=== PATIENT | male | born 1995 | race Caucasian/White ===

== ENCOUNTER 2022-05-05 21:06 | Emergency (ER) | payer OTHER ==
[~2022-05-05] VITALS: Ht 180.3 cm; Wt 95.0 kg
[2022-05-05 22:06] VITALS: BP 129/89
[2022-05-05] MEDS ORDERED: ACETAMINOPHEN 325MG TABLET PO ONE (22:45)
[2022-05-05] MEDS ORDERED: BACITRACIN ZINC OINT UDPKT TOP ONE (22:45)
[2022-05-05] MEDS ORDERED: LIDOCAINE HCL/EPINEPHRINE 1%-EPI 1:100,000 20 ML VIAL INFIL ONE (22:45)
[2022-05-05] MEDS ORDERED: TETANUS, DIPHTHERIA, PERTUSSIS VAC/PF 0.5ML (>10YR OLD) IM ONE ×2 (22:45→23:30)
[2022-05-05] MEDS ORDERED: LIDOCAINE HCL/EPINEPHRINE 1%-EPI 1:100,000 20 ML VIAL INFIL NR (23:15)
[2022-05-05] MEDS ORDERED: BACITRACIN ZINC OINT UDPKT TOP NR (23:30)
[2022-05-05] MEDS ORDERED: CEPHALEXIN 250MG CAPSULE PO ONE (23:30)
[2022-05-05] MEDS ORDERED: ACETAMINOPHEN 325MG TABLET PO NR (23:30)
[2022-05-06] MEDS ORDERED: CEPH500T MT (00:01)
== END 2022-05-06 00:20 | disposition home or self-care (01) ==
LOC: ER 21:06
DX: S61.211A Laceration without foreign body of left index finger without damage to nail, initial encounter (principal); W31.2XXA Contact with powered woodworking and forming machines, initial encounter; Y93.89 Activity, other specified; Y92.018 Other place in single-family (private) house as the place of occurrence of the external cause
CPT/HCPCS: 12002; 73140; 90471; 90715; 99283; J3490